=== PATIENT | male | born 1985 | race Caucasian/White ===

== ENCOUNTER 2017-02-08 11:54 | Emergency (ER) | payer BC ==
[2017-02-08 12:06] VITALS: BP 130/71
--- NOTE | 2017-02-08 12:57 | UC ---
Abdominal Pain Male HPI - HPI Summary HPI Summary: states he has acid indigestion frequently. he usually drinks baking soda water. last night he had increased pain. he drank about 4 cups of the baking soda water. he could not sleep well. he also had bad headaches for the last few days and had been taking ibuprofen and tylenol. he denies nausea, vomiting or loose stools. he denies radiation of pain to the chest, neck, arm or jaw. Denies blood in stool. Taken 2000mg ibuprofen, 650 ASA in the past 3 days . took PPI in the past and it worked well. no PCP at this time [ End ] - History of Current Complaint Chief Complaint: UCGI Stated Complaint: ABDOMINAL PAIN Time Seen by Provider: 02/08/17 12:49 Hx Obtained From: Patient Onset/Duration: Gradual Onset Timing: Constant Radiates: No Character: Aching, Burning Aggravating Factor(s):: Food Alleviating Factor(s): Nothing - Allergies/Home Medications Allergies/Adverse Reactions: Allergies Allergy/AdvReac Type Severity Reaction Status Date / Time Penicillins [PCN] Allergy Unknown Verified 02/08/17 12:05 Reaction Details PMH/Surg Hx/FS Hx/Imm Hx Previously Healthy: Yes GI/ History: Gastroesophageal Reflux - Surgical History Surgical History: Yes Surgery Procedure, Year, and Place: wisdom teeth - Social History Occupation: Employed Full-time Lives: With Family Alcohol Use: None Alcohol Amount: quit drinking about 7 months ago Substance Use Type: None Smoking Status (MU): Never Smoked Tobacco Review of Systems Constitutional: Negative Skin: Negative Eyes: Negative ENT: Negative Respiratory: Negative Cardiovascular: Negative Gastrointestinal: Abdominal Pain Genitourinary: Negative Motor: Negative Neurovascular: Negative Musculoskeletal: Negative Neurological: Negative Psychological: Negative All Other Systems Reviewed And Are Negative: Yes Physical Exam Triage Information Reviewed: Yes Appearance: Well-Appearing, No Pain Distress, Well-Nourished Vital Signs: Initial Vital Signs Temp 97.8 F 02/08/17 12:00 Pulse 64 02/08/17 12:00 Resp 14 02/08/17 12:00 BP 130/71 02/08/17 12:00 Pulse Ox 99 02/08/17 12:00 Vital Signs Reviewed: Yes Eye Exam: Normal ENT Exam: Normal Dental Exam: Normal Neck exam: Normal Neck: Positive: 1 Respiratory Exam: Normal Cardiovascular Exam: Normal Abdominal Exam: Normal Abdomen Description: Positive: Nontender - minimal tenderness mid epigastric to deep palpation, No Organomegaly, Soft. Negative: Bruit, CVA Tenderness (R), CVA Tenderness (L), Distended, Guarding Musculoskeletal Exam: Normal Neurological Exam: Normal Psychological Exam: Normal Skin Exam: Normal Abd Pain Male Course/Dx - Course Course Of Treatment: GERD/ Gastritis and NSAID use worsening Sx. Avoid NSAIDs. start PPI. Can use APAP prn. F/u with PCP. No acute abdomen. - Differential Dx/Clinical Impression Provider Diagnoses: gastritis Discharge - Discharge Plan Condition: Good Disposition: HOME Prescriptions: Omeprazole 40 mg PO DAILY #14 cap Patient Education Materials: Gastritis (ED) Referrals: Non Staff,Doctor [Primary Care Provider] - 3 Days Jb Gonzalez MD [Medical Doctor] - If Needed (GI referral if needed )
== END 2017-02-08 13:09 | disposition home or self-care (01) ==
LOC: UCCORT 11:54
DX: K29.70 Gastritis, unspecified, without bleeding (principal); K21.9 Gastro-esophageal reflux disease without esophagitis; Z88.0 Allergy status to penicillin
CPT/HCPCS: 99202; G0463